=== PATIENT | male | born 1950 | race American Indian/Alaskan Native ===

== ENCOUNTER 2016-09-02 07:28 | Emergency (ER) | payer OTHER ==
[2016-09-02] MEDS ORDERED: Sodium Chloride 0.9% 2.5 ML Syringe FLUSH PRN (07:46)
[2016-09-02] MEDS ORDERED: Ketorolac 30 MG/ML SDV IVPUSH ONE (07:46)
[2016-09-02] MEDS ORDERED: Sodium Chloride 0.9% 10 ML Syringe FLUSH PRN (07:46)
--- NOTE | 2016-09-02 07:55 | EDM.PDOC ---
ED HPI Trauma - General Chief Complaint: Upper Extremity Injury/Pain Stated Complaint: POST OP SHOULDER SURGERY Time Seen by Provider: 09/02/16 07:35 - History of Present Illness INITIAL COMMENTS - FREE TEXT/NARRATIVE: HISTORY AND PHYSICAL: History of present illness: The patient is a 66-year-old male with a history of insulin requiring diabetes, HTN, who underwent rotator cuff/shoulder impingement surgery at [facility] in [place] with Dr. Burns 4 days ago who presents via EMS after waking this morning with severe excruciating pain to his right shoulder which then triggered him to have "visual changes involving seeing white and loss of hearing "that lasted for 15-20 minutes and has since resolved. The patient says that he had no chest pain shortness of breath or weakness in any of his extremities and he did not feel that he was going to pass out during this episode. His blood sugar per EMS was 88 on arrival and he currently has no symptoms in the ER except discomfort in his shoulder incision. He states to me he is very worried about an infection which is why he came here. He says he has a headache that he describes it as pain to the trapezius and posterior left neck area not specifically his head. Is had no fevers or chills in the last several days and no other upper respiratory symptoms. The patient currently denies any lightheadedness or dizziness has no weakness but does have some discomfort to his shoulder area on the left. The dressing is intact and is slated to be removed tomorrow and he will followup with his surgeon on Saturday. According to the swelling that is present at the shoulder is not new or different. He is currently taking hydrocodone for the pain. He denies any neurosensory changes in any of his extremities both a during the event and currently. Review of systems: As per history of present illness and below otherwise all systems reviewed and negative. Past medical history: As per history of present illness and as reviewed below otherwise noncontributory. Surgical history: As per history of present illness and as reviewed below otherwise noncontributory. Social history: No reported history of drug or alcohol abuse. Family history: As per history of present illness and as reviewed below otherwise noncontributory. Physical exam: General: Well-developed well-nourished male who is nontoxic and vital signs have been reviewed by me. He is clearly and easily in ED HEENT: Atraumatic, normocephalic, pupils reactive, negative for conjunctival pallor or scleral icterus, mucous membranes moist, throat clear, neck supple, nontender, trachea midline. There is reproducible pain along the left trapezius and posterior neck area but no scalp tenderness. Lungs: Clear to auscultation, breath sounds equal bilaterally, chest nontender. Heart: S1S2, regular, negative for clicks, rubs, or JVD. Abdomen: Soft, nondistended, nontender. Negative for masses or hepatosplenomegaly. Negative for costovertebral tenderness. Pelvis: Stable nontender. Genitourinary: Deferred. Rectal: Deferred. Extremities: Atraumatic, negative for cords or calf pain. Neurovascular unremarkable. The patient has a dressing in place at the left anterior shoulder is clean and dry and has visible old blood underneath it. There is some firm swelling appreciated consistent with an old hematoma but the compartment itself is very soft and distally there is no swelling or ecchymosis and neurovascular is intact completely in that arm grossly. Neuro: Awake, alert, oriented. Cranial nerves II through XII unremarkable. Cerebellum unremarkable. Motor and sensory unremarkable throughout. Exam nonfocal. Patient has no evidence of any drift any extremity and is speaking clearly and easily. Diagnostics: EKG CBC CMP lactic acid troponin TSH CT scan of the head visual acuity Therapeutics: IV O2 monitor Toradol Visual acuity was right eye 20/40 left eye 20/50 both eyes 20/30 with glasses. The patient seemed to be somewhat frustrated with the exam per the nurse. When I evaluated him initially he said that he did not have blurred vision nor was he seen the weight that he saw earlier in both eyes. The patient says that when the episode happened this morning his vision was blurred he just saw the white. Again he did not pass out or black out and denies to me that he felt like he was going to do that this morning. 0930: Testing results were discussed at length with the patient and family member at bedside. I discussed with them that I do not have a clear etiology as to what happened this morning and he can be any one of a number of things but that I recommended observation admission as it would be more prudent to follow these symptoms to see if they return and to do frequent neuro checks and potentially more testing if indicated. The patient feels very strongly that he does not want to stay but the and family member are currently talking to him and they want him to stay. The has asked me to contact his orthopedic surgeon at [facility] in [place] and although Dr. Burns is not yard supervisor [employer] his partner Dr. Russell has been paged and I will chat with him about today's events. The family is currently talking about the plan for either disposition home or admission. The family and patient are very aware of my concerns and the patient accepts all of the risks and benefits and states understanding. 0944: Case was discussed with Dr. Russell who says that he will pass on information to Dr. Burns. The patient has had discussions with the family and he is choosing to go home and accepts and understands risks. He is advised to return if the symptoms return or worsen or if anything new occurs and to proceed with this followup tomorrow and Saturday as scheduled. I also advised him to follow up with his family doctor for reevaluation as well. Impression: Episode of visual changes, hearing loss etiology unclear, history of recent shoulder surgery and narcotic use, history of hypertension and insulin requiring diabetes stable Definitive disposition and diagnosis as appropriate pending reevaluation and review of above. Allergies/ADRs: Allergies Olgyvoa-Cxi-Cir Reductase Inhibitor Allergy (Verified 09/02/16 07:38) Joint Pain venom-honey bee [bee venom (honey bee)] Allergy (Verified 03/16/16 20:09) Swelling Home Medications: Ambulatory Orders Insulin Detemir [Levemir Flexpen] 50 units SQ PCDIN 02/12/14 [Confirmed 09/02/16 ] metFORMIN [Glucophage XR] 2 tab PO DAILY 02/12/14 [Confirmed 09/02/16] Lansoprazole [Prevacid] 30 mg PO DAILY PRN 10/25/14 [Confirmed 09/02/16] Aspirin 81 mg PO DAILY 03/16/16 [Confirmed 09/02/16] Clopidogrel [Plavix] 75 mg PO DAILY 03/16/16 [Confirmed 09/02/16] Ezetimibe [Zetia] 10 mg PO DAILY 03/16/16 [Confirmed 09/02/16] Insulin Aspart [Novolog Flexpen] 5 units SQ TIDAC 03/16/16 [Confirmed 09/02/16] Lisinopril 1 tab PO DAILY 03/16/16 [Confirmed 09/02/16] Pioglitazone [Actos] 30 mg PO DAILY 03/16/16 [Confirmed 09/02/16] Cephalexin [Keflex] 500 mg PO QID 09/02/16 [Confirmed 09/02/16] Hydrocodone/Acetaminophen [Hydrocodon-Acetaminophn 10-325] 10 - 325 mg PO Q4HR PRN 09/02/16 [Confirmed 09/02/16] Ondansetron HCl [Zofran] 4 mg PO Q8HR PRN 09/02/16 [Confirmed 09/02/16] Tamsulosin [Flomax] 0.4 mg PO DAILY 09/02/16 [Confirmed 09/02/16] traMADol [Ultram] 50 mg PO Q6HR PRN 09/02/16 [Confirmed 09/02/16] Past Medical History Cardiovascular History: Reports: Bypass, CAD, High cholesterol, Hypertension, [place] Respiratory History: Reports: None Gastrointestinal History: Reports: None Neurological History: Reports: TIA Psychiatric History: Reports: None Endocrine/Metabolic History: Reports: Diabetes, type II Dermatologic History: Reports: None - Infectious Disease History Infectious Disease History: Reports: None - Past Surgical History HEENT Surgical History: Reports: Other (see below) Other HEENT Surgeries/Procedures: laser surgery Cardiovascular Surgical History: Reports: Carotid stents, Coronary artery bypass GI Surgical History: Reports: None Musculoskeletal Surgical History: Reports: Shoulder surgery, Other (see below) Other Musculoskeletal Surgeries/Procedures:: left arm surgery. removal of benign cyst on the neck area Social & Family History - Tobacco Use Smoking Status *Q: Never Smoker Used Tobacco, but Quit: Yes - Alcohol Use Days Per Week of Alcohol Use: 2 Number of Drinks Per Day: 2 Total Drinks Per Week: 4 - Recreational Drug Use Recreational Drug Use: No Drug Use in Last 12 Months: No Review of Systems - Review of Systems Review Of Systems: ROS reveals no pertinent complaints other than HPI. Trauma Exam - Physical Exam Exam: See Below (See dictation) Course - Vital Signs Last Recorded V/S: Last Vital Signs Temp 36.8 C 09/02/16 07:39 Pulse 105 H 09/02/16 07:39 Resp 19 09/02/16 07:39 BP 181/79 H 09/02/16 07:39 Pulse Ox 95 09/02/16 07:39 - Orders/Labs/Meds Orders: Active Orders 24 hr Category Date Time Status Cardiac Monitoring [RC] . DIRECTED Care 09/02/16 07:43 Active Communication Order [RC] STAT Care 09/02/16 08:47 Active EKG Documentation Completion [RC] STAT Care 09/02/16 07:43 Active Oxygen Therapy, ED [RC] ASDIRECTED Care 09/02/16 07:43 Active Pulse Oximetry [RC] ASDIRECTED Care 09/02/16 07:43 Active Head wo Cont [CT] Stat Exams 09/02/16 07:46 Taken Sodium Chloride 0.9% [Saline Flush] Med 09/02/16 07:46 Active 10 ml FLUSH ASDIRECTED PRN Sodium Chloride 0.9% [Saline Flush] Med 09/02/16 07:46 Active 2.5 ml FLUSH ASDIRECTED PRN Saline Lock Insert [OM.PC] Stat Oth 09/02/16 07:43 Ordered Medication Orders Sodium Chloride (Saline Flush) 10 ml FLUSH ASDIRECTED PRN PRN Reason: Keep Vein Open Last Admin: 09/02/16 08:05 Dose: 10 ml Sodium Chloride (Saline Flush) 2.5 ml FLUSH ASDIRECTED PRN PRN Reason: Keep Vein Open Last Admin: 09/02/16 08:05 Dose: 2.5 ml Labs: Laboratory Tests 09/02/16 09/02/16 09/02/16 Range/Units 08:05 08:05 08:05 WBC 9.96 (4.0-11.0) K/uL RBC 3.42 L (4.50-5.90) M/uL Hgb 9.8 L (13.0-17.0) g/dL Hct 29.9 L (38.0-50.0) % MCV 87.4 (80.0-98.0) fL MCH 28.7 (27.0-32.0) pg MCHC 32.8 (31.0-37.0) g/dL RDW Std Deviation 43.5 (28.0-62.0) fl RDW Coeff of Lele 14 (11.0-15.0) % Plt Count 258 (150-400) K/uL MPV 8.60 (7.40-12.00) fL Neut % (Auto) 84.2 H (48.0-80.0) % Lymph % (Auto) 8.9 L (16.0-40.0) % [place] % (Auto) 6.0 (0.0-15.0) % Eos % (Auto) 0.8 (0.0-7.0) % Baso % (Auto) 0.1 (0.0-1.5) % Neut # (Auto) 8.4 H (1.4-5.7) K/uL Lymph # (Auto) 0.9 (0.6-2.4) K/uL [place]id[place] # (Auto) 0.6 (0.0-0.8) K/uL Eos # (Auto) 0.1 (0.0-0.7) K/uL Baso # (Auto) 0.0 (0.0-0.1) K/uL Nucleated RBC % 0.0 /100WBC Nucleated RBCs # 0 K/uL Lactate 1.0 (0.20-2.00) mmol/L Sodium 137 (136-146) mmol/L Potassium 3.9 (3.5-5.1) mmol/L Chloride 103 (98-110) mmol/L Carbon Dioxide 24 (21-31) mmol/L BUN 13 (6.0-23.0) mg/dL Creatinine 0.8 (0.6-1.5) mg/dL Est Cr Clr Drug Dosing 86.69 mL/min Estimated GFR (MDRD) > 60.0 ml/min Glucose 102 (60-110) mg/dL Calcium 8.7 L (8.8-10.8) mg/dL Total Bilirubin 0.8 (0.1-1.5) mg/dL AST 17 (5-40) IU/L ALT 12 (8-54) IU/L Alkaline Phosphatase 58 (40-150) Troponin I (0.0-0.29) NG/ML Total Protein 7.2 (6.0-8.0) g/dL Albumin 3.5 (3.4-4.8) g/dL Globulin 3.7 H (2.0-3.5) g/dL Albumin/Globulin Ratio 1.0 L (1.3-2.8) TSH 3rd Generation 1.66 (0.47-5.0) uIU/mL 09/02/16 Range/Units 08:05 WBC (4.0-11.0) K/uL RBC (4.50-5.90) M/uL Hgb (13.0-17.0) g/dL Hct (38.0-50.0) % MCV (80.0-98.0) fL MCH (27.0-32.0) pg MCHC (31.0-37.0) g/dL RDW Std Deviation (28.0-62.0) fl RDW Coeff of Lele (11.0-15.0) % Plt Count (150-400) K/uL MPV (7.40-12.00) fL Neut % (Auto) (48.0-80.0) % Lymph % (Auto) (16.0-40.0) % [place]id[place] % (Auto) (0.0-15.0) % Eos % (Auto) (0.0-7.0) % Baso % (Auto) (0.0-1.5) % Neut # (Auto) (1.4-5.7) K/uL Lymph # (Auto) (0.6-2.4) K/uL [place] # (Auto) (0.0-0.8) K/uL Eos # (Auto) (0.0-0.7) K/uL Baso # (Auto) (0.0-0.1) K/uL Nucleated RBC % /100WBC Nucleated RBCs # K/uL Lactate (0.20-2.00) mmol/L Sodium (136-146) mmol/L Potassium (3.5-5.1) mmol/L Chloride (98-110) mmol/L Carbon Dioxide (21-31) mmol/L BUN (6.0-23.0) mg/dL Creatinine (0.6-1.5) mg/dL Est Cr Clr Drug Dosing mL/min Estimated GFR (MDRD) ml/min Glucose (60-110) mg/dL Calcium (8.8-10.8) mg/dL Total Bilirubin (0.1-1.5) mg/dL AST (5-40) IU/L ALT (8-54) IU/L Alkaline Phosphatase (40-150) Troponin I < 0.10 (0.0-0.29) NG/ML Total Protein (6.0-8.0) g/dL Albumin (3.4-4.8) g/dL Globulin (2.0-3.5) g/dL Albumin/Globulin Ratio (1.3-2.8) TSH 3rd Generation (0.47-5.0) uIU/mL Meds: Medications Generic Name Dose Route Start Last Admin Trade Name Freq PRN Reason Stop Dose Admin Sodium Chloride 10 ml 09/02/16 07:46 09/02/16 08:05 Saline Flush FLUSH 10 ml ASDIRECTED PRN Administration Keep Vein Open Sodium Chloride 2.5 ml 09/02/16 07:46 09/02/16 08:05 Saline Flush FLUSH 2.5 ml ASDIRECTED PRN Administration Keep Vein Open Discontinued Medications Generic Name Dose Route Start Last Admin Trade Name Freq PRN Reason Stop Dose Admin Ketorolac Tromethamine 30 mg 09/02/16 07:46 09/02/16 08:05 Toradol IVPUSH 09/02/16 07:47 30 mg ONETIME ONE Administration Departure - Departure Time of Disposition: 09:45 Disposition: Home, Self-Care 01 Condition: good Clinical Impression: Neurologic abnormality Forms: ED Department Discharge Additional Instructions: The following information is given to patients seen in the emergency department who are being discharged to home. This information is to outline your options for follow-up care. We provide all patients seen in our emergency department with a follow-up referral. The need for follow-up, as well as the timing and circumstances, are variable depending upon the specifics of your emergency department visit. If you don't have a primary care physician on staff, we will provide you with a referral. We always advise you to contact your personal physician following an emergency department visit to inform them of the circumstance of the visit and for follow-up with them and/or the need for any referrals to a consulting specialist. The emergency department will also refer you to a specialist when appropriate. This referral assures that you have the opportunity for followup care with a specialist. All of these measure are taken in an effort to provide you with optimal care, which includes your followup. Under all circumstances we always encourage you to contact your private physician who remains a resource for coordinating your care. When calling for followup care, please make the office aware that this follow-up is from your recent emergency room visit. If for any reason you are refused follow-up, please contact the [facility] emergency department at and ask to speak to the emergency department charge nurse. [facility] Primary care- Internal Medicine and Family [facility] [address] [place], [place] [id number] [facility] [address] [place] [address] Please keep all your appointments as scheduled for tomorrow and Saturday for your shoulder and please also call your primary care for further evaluation of today's events. Please also followup with the network support specialist to have your eyes reevaluated. Please take all home medications as before and return to ER as needed and as discussed - My Orders Last 24 Hours: My Active Orders 09/02/16 07:43 Cardiac Monitoring [RC] . DIRECTED EKG Documentation Completion [RC] STAT Oxygen Therapy, ED [RC] ASDIRECTED Pulse Oximetry [RC] ASDIRECTED Saline Lock Insert [OM.PC] Stat 09/02/16 07:46 Head wo Cont [CT] Stat Sodium Chloride 0.9% [Saline Flush] 10 ml FLUSH ASDIRECTED PRN Sodium Chloride 0.9% [Saline Flush] 2.5 ml FLUSH ASDIRECTED PRN 09/02/16 08:47 Communication Order [RC] STAT - Assessment/Plan Last 24 Hours: My Active Orders 09/02/16 07:43 Cardiac Monitoring [RC] . DIRECTED EKG Documentation Completion [RC] STAT Oxygen Therapy, ED [RC] ASDIRECTED Pulse Oximetry [RC] ASDIRECTED Saline Lock Insert [OM.PC] Stat 09/02/16 07:46 Head wo Cont [CT] Stat Sodium Chloride 0.9% [Saline Flush] 10 ml FLUSH ASDIRECTED PRN Sodium Chloride 0.9% [Saline Flush] 2.5 ml FLUSH ASDIRECTED PRN 09/02/16 08:47 Communication Order [RC] STAT
[2016-09-02 08:37] LABS: CHLORIDE,CL 103 mmol/L (98-110); SODIUM,NA 137 mmol/L (136-146)
[2016-09-02 10:01] VITALS: BP 142/62
--- NOTE | 2016-09-03 18:18 | CT ---
EXAM DATE: 09/02/16 PATIENT'S AGE: 66 Patient: CARLOS TONY Facility: [place], [place] Site . Site : 1950 Study: CT Head [id number]/26/2017 8:30:46 AM Ordering Physician: Gus Díaz Final Report: INDICATION: Blurred vision. Difficulty hearing. Recent shoulder surgery. TECHNIQUE: CT head without contrast. COMPARISON: April 27, 2009. FINDINGS: CSF spaces: Within normal limits for age. Brain parenchyma: The moore-white differentiation is normal. No sign of mass, hemorrhage, or midline shift. Skull base and calvarium: The visualized paranasal sinuses and mastoid air cells demonstrate no acute or significant findings. The visualized orbits are grossly unremarkable. No skull fractures. IMPRESSION: Unremarkable noncontrast head CT. No sign of CVA or other significant finding. Dictated by Royal Christianson MD @ 09/02/2016 9:26:16 AM Dictated by: Royal Christianson MD @ 09/02/2016 09:26:21 (Electronic Signature) Report Signed by Proxy and Original Signed Document filed in the Medical Record. [facility]
== END 2016-09-02 09:59 | disposition home or self-care (01) ==
LOC: MW.ED 07:28
DX: R29.818 Other symptoms and signs involving the nervous system (principal); M25.511 Pain in right shoulder; G89.18 Other acute postprocedural pain; E11.9 Type 2 diabetes mellitus without complications; Z79.4 Long term (current) use of insulin; I10 Essential (primary) hypertension; I25.810 Atherosclerosis of coronary artery bypass graft(s) without angina pectoris; I25.2 Old myocardial infarction; Z86.73 Personal history of transient ischemic attack (TIA), and cerebral infarction without residual deficits; Z87.891 Personal history of nicotine dependence; Z79.02 Long term (current) use of antithrombotics/antiplatelets; Z79.899 Other long term (current) drug therapy
CPT/HCPCS: 36415; 70450; 80053; 83605; 84443; 84484; 85025; 93005; 96374; 99284; J1885

== ENCOUNTER 2017-06-14 00:50 | Emergency (ER) | payer OTHER ==
[2017-06-14] MEDS ORDERED: Ondansetron 4 MG/2 ML SDV IVPUSH ONE (01:08)
[2017-06-14] MEDS ORDERED: Sodium Chloride 0.9% 1,000 ML IV ONE (01:08)
[2017-06-14] MEDS ORDERED: Ketorolac 30 MG/ML SDV IVPUSH ONE (01:08)
--- NOTE | 2017-06-14 01:10 | EDM.PDOC ---
ED HPI GENERAL MEDICAL PROBLEM - General Chief Complaint: Abdominal Pain Stated Complaint: UPPER RIGHT ABDOMINAL PAIN Time Seen by Provider: 06/14/17 01:10 Source of Information: Reports: Patient - History of Present Illness INITIAL COMMENTS - FREE TEXT/NARRATIVE: HISTORY AND PHYSICAL: History of present illness: [Patient presents with right upper quadrant pain 8 out of 10 tonight no fever nausea vomiting chills sweats He is been dealing with pain off and on over the last couple of months and intermittently in the remote past as well, tonight for dinner he had egg salad sandwiches and span which has seemed to trigger the pain No fever nausea vomiting chills sweats ] Review of systems: As per history of present illness and below otherwise all systems reviewed and negative. Past medical history: As per history of present illness and as reviewed below otherwise noncontributory. Surgical history: As per history of present illness and as reviewed below otherwise noncontributory. Social history: No reported history of drug or alcohol abuse. Family history: As per history of present illness and as reviewed below otherwise noncontributory. Physical exam: HEENT: Atraumatic, normocephalic, pupils reactive, negative for conjunctival pallor or scleral icterus, mucous membranes moist, throat clear, neck supple, nontender, trachea midline. Lungs: Clear to auscultation, breath sounds equal bilaterally, chest nontender. Heart: S1S2, regular, negative for clicks, rubs, or JVD. Abdomen: Soft, nondistended, nontender. Negative for masses or hepatosplenomegaly. Negative for costovertebral tenderness. Pelvis: Stable nontender. Genitourinary: Deferred. Rectal: Deferred. Extremities: Atraumatic, negative for cords or calf pain. Neurovascular unremarkable. Neuro: Awake, alert, oriented. Cranial nerves II through XII unremarkable. Cerebellum unremarkable. Motor and sensory unremarkable throughout. Exam nonfocal. Diagnostics: [CBC CMP amylase lipase troponin EKG Chest 1 view ] Therapeutics: []Liter normal saline bolus Zofran 8 mg IV Toradol 30 mg IV [place] diet Eighty Four Zofran Cipro Follow-up with general surgery for evaluation and treatment Impression: Biliary colic [Right upper quadrant pain resolved with above treatment Definitive disposition and diagnosis as appropriate pending reevaluation and review of above. RLQ Pain Score (Numeric/FACES): 6 - Related Data Allergies Allergy/AdvReac Type Severity Reaction Status Date / Time Nqcmbfx-Blo-Ljs Reductase Allergy Joint Pain Verified 09/02/16 07:38 Inhibitor venom-honey bee Allergy Swelling Verified 03/16/16 20:09 [bee venom (honey bee)] Home Meds: Home Meds Insulin Detemir [Levemir Flexpen] 50 units SQ PCDIN 02/12/14 [History] metFORMIN [Glucophage XR] 2 tab PO DAILY 02/12/14 [History] Lansoprazole [Prevacid] 30 mg PO DAILY PRN 10/25/14 [History] Aspirin 81 mg PO DAILY 03/16/16 [History] Clopidogrel [Plavix] 75 mg PO DAILY 03/16/16 [History] Insulin Aspart [Novolog Flexpen] 5 units SQ TIDAC 03/16/16 [History] Lisinopril 1 tab PO DAILY 03/16/16 [History] Tamsulosin [Flomax] 0.4 mg PO DAILY 09/02/16 [History] Past Medical History HEENT History: Reports: Impaired Vision Other HEENT History: wears glasses Cardiovascular History: Reports: Bypass, CAD, High Cholesterol, Hypertension, SD Respiratory History: Reports: None Gastrointestinal History: Reports: None Neurological History: Reports: TIA Psychiatric History: Reports: None Endocrine/Metabolic History: Reports: Diabetes, Type II Dermatologic History: Reports: None - Infectious Disease History Infectious Disease History: Reports: None - Past Surgical History HEENT Surgical History: Reports: Other (See Below) Cardiovascular Surgical History: Reports: Carotid Stents, Coronary Artery Bypass Musculoskeletal Surgical History: Reports: Shoulder Surgery, Other (See Below) Social & Family History - Family History Family Medical History: Noncontributory - Tobacco Use Smoking Status *Q: Never Smoker Used Tobacco, but Quit: Yes Second Hand Smoke Exposure: Yes - Caffeine Use Caffeine Use: Reports: None - Alcohol Use Days Per Week of Alcohol Use: 2 Number of Drinks Per Day: 2 Total Drinks Per Week: 4 - Recreational Drug Use Recreational Drug Use: No Drug Use in Last 12 Months: No ED ROS GENERAL - Review of Systems Review Of Systems: ROS reveals no pertinent complaints other than HPI. ED EXAM, GENERAL - Physical Exam Exam: See Below Course - Vital Signs Last Recorded V/S: Last Vital Signs Temp 98.9 F 06/14/17 01:10 Pulse 80 06/14/17 01:10 Resp 18 06/14/17 01:10 BP 185/91 H 06/14/17 01:10 Pulse Ox 95 06/14/17 01:10 - Orders/Labs/Meds Orders: Active Orders 24 hr Category Date Time Status EKG Documentation Completion [RC] STAT Care 06/14/17 01:08 Active Abdomen Ltd [US] Stat Exams 06/14/17 01:41 Taken Chest 1V Frontal [CR] Stat Exams 06/14/17 01:08 Taken UA W/MICROSCOPIC [URIN] Stat Lab 06/14/17 01:08 Uncollected Labs: Laboratory Tests 06/14/17 06/14/17 Range/Units 01:20 01:20 WBC 8.04 (4.0-11.0) K/uL RBC 4.25 L (4.50-5.90) M/uL Hgb 13.0 (13.0-17.0) g/dL Hct 37.6 L (38.0-50.0) % MCV 88.5 (80.0-98.0) fL MCH 30.6 (27.0-32.0) pg MCHC 34.6 (31.0-37.0) g/dL RDW Std Deviation 40.2 (28.0-62.0) fl RDW Coeff of Lele 13 (11.0-15.0) % Plt Count 306 (150-400) K/uL MPV 8.60 (7.40-12.00) fL Neut % (Auto) 49.9 (48.0-80.0) % Lymph % (Auto) 34.8 (16.0-40.0) % [place] % (Auto) 7.6 (0.0-15.0) % Eos % (Auto) 7.3 H (0.0-7.0) % Baso % (Auto) 0.4 (0.0-1.5) % Neut # (Auto) 4.0 (1.4-5.7) K/uL Lymph # (Auto) 2.8 H (0.6-2.4) K/uL Charlotte # (Auto) 0.6 (0.0-0.8) K/uL Eos # (Auto) 0.6 (0.0-0.7) K/uL Baso # (Auto) 0.0 (0.0-0.1) K/uL Sodium 137 (136-146) mmol/L Potassium 3.9 (3.5-5.1) mmol/L Chloride 105 (98-110) mmol/L Carbon Dioxide 23 (21-31) mmol/L BUN 16 (6.0-23.0) mg/dL Creatinine 1.0 (0.6-1.5) mg/dL Est Cr Clr Drug Dosing 68.40 mL/min Estimated GFR (MDRD) > 60.0 ml/min Glucose 120 H (60-110) mg/dL Calcium 9.2 (8.8-10.8) mg/dL Total Bilirubin 0.5 (0.1-1.5) mg/dL AST 18 (5-40) IU/L ALT 17 (8-54) IU/L Alkaline Phosphatase 92 (40-150) Creatine Kinase 104 (9-236) IU/L CK-MB (CK-2) 1.4 (0-6.6) ng/ml Troponin I < 0.10 (0.0-0.29) NG/ML Total Protein 8.1 H (6.0-8.0) g/dL Albumin 4.2 (3.4-4.8) g/dL Globulin 3.9 H (2.0-3.5) g/dL Albumin/Globulin Ratio 1.1 L (1.3-2.8) Amylase 54 (10-90) U/L Lipase 36 (7-80) U/L Meds: Medications Discontinued Medications Generic Name Dose Route Start Last Admin Trade Name Freq PRN Reason Stop Dose Admin Sodium Chloride 1,000 mls @ 999 mls/hr 06/14/17 01:08 06/14/17 01:28 Normal Saline IV 06/14/17 02:08 999 mls/hr STAT ONE Administration Ketorolac Tromethamine 30 mg 06/14/17 01:08 06/14/17 01:28 Toradol IVPUSH 06/14/17 01:09 30 mg ONETIME ONE Administration Ondansetron HCl 8 mg 06/14/17 01:08 06/14/17 01:28 Zofran IVPUSH 06/14/17 01:09 8 mg ONETIME ONE Administration Departure - Departure Time of Disposition: 03:01 Disposition: Home, Self-Care 01 Condition: Good Clinical Impression: Biliary colic - Discharge Information Referrals: Leela Amaro PA-C [Primary Care Provider] - Forms: ED Department Discharge Additional Instructions: Medication as prescribed [place] diet as discussed avoiding greasy or deep-fried foods Return if symptoms persist or worsen or fever chills sweats should they develop General surgery call number provided below to set up appropriate follow-up next week [facility] - General Surgery [address], [address] [place] [address] The following information is given to patients seen in the emergency department who are being discharged to home. This information is to outline your options for follow-up care. We provide all patients seen in our emergency department with a follow-up referral. The need for follow-up, as well as the timing and circumstances, are variable depending upon the specifics of your emergency department visit. If you don't have a primary care physician on staff, we will provide you with a referral. We always advise you to contact your personal physician following an emergency department visit to inform them of the circumstance of the visit and for follow-up with them and/or the need for any referrals to a consulting specialist. The emergency department will also refer you to a specialist when appropriate. This referral assures that you have the opportunity for follow-up care with a specialist. All of these measure are taken in an effort to provide you with optimal care, which includes your follow-up. Under all circumstances we always encourage you to contact your private physician who remains a resource for coordinating your care. When calling for follow-up care, please make the office aware that this follow-up is from your recent emergency room visit. If for any reason you are refused follow-up, please contact the [facility] emergency department at and asked to speak to the emergency department charge nurse. - My Orders Last 24 Hours: My Active Orders 06/14/17 01:08 EKG Documentation Completion [RC] STAT Chest 1V Frontal [CR] Stat UA W/MICROSCOPIC [URIN] Stat 06/14/17 01:41 Abdomen Ltd [US] Stat - Assessment/Plan Last 24 Hours: My Active Orders 06/14/17 01:08 EKG Documentation Completion [RC] STAT Chest 1V Frontal [CR] Stat UA W/MICROSCOPIC [URIN] Stat 06/14/17 01:41 Abdomen Ltd [US] Stat
[2017-06-14 02:04] LABS: CHLORIDE,CL 105 mmol/L (98-110); SODIUM,NA 137 mmol/L (136-146)
[2017-06-14 03:20] VITALS: BP 145/74
--- NOTE | 2017-06-14 16:27 | CR ---
EXAM DATE: 06/14/17 PATIENT'S AGE: 67 Patient: CARLOS TONY Facility: [place], [place] Site . Site : 1950 Study: XRay Chest [id number]/5/2018 1:52:11 AM Ordering Physician: Tristan Poe Final Report: INDICATIONS: Pain. Shortness of breath. TECHNIQUE: Chest 1 portable view. COMPARISON: Chest radiograph March 16, 2016. FINDINGS: No pneumothorax or pleural effusion. Elevation of the right hemidiaphragm with mild bibasilar scarring or atelectasis, as before. The lungs are otherwise clear. Median sternotomy. Cardiac and mediastinal contours are within normal limits. Upper abdomen and osseous structures show no acute abnormality. Surgical anchors in the right humeral head. Left shoulder arthroplasty. IMPRESSION: No evidence of acute cardiopulmonary disease. Dictated by Thierry Hinds MD @ 06/14/2017 1:55:10 AM Dictated by: Thierry Hinds MD @ 06/14/2017 01:55:19 (Electronic Signature) Report Signed by Proxy. [facility]AMPUSKevin
--- NOTE | 2017-06-14 16:29 | US ---
EXAM DATE: 06/14/17 PATIENT'S AGE: 67 Patient: CARLOS TONY Facility: [place], [place] Site . Site : 1950 Study: US Abdomen [id number]/5/2018 2:35:42 AM Ordering Physician: Tristan Poe Final Report: INDICATION: Pain. TECHNIQUE: Ultrasound abdomen limited. Sonographic images of the right upper quadrant were obtained using moore-scale and color Doppler images. COMPARISON: Abdominal ultrasound November 12, 2014. FINDINGS: Exam quality degraded by overlying bowel gas. Liver: Diffusely elevated echotexture of the visualized hepatic parenchyma. No focal liver lesion demonstrated. Gallbladder: Possible small amount of sludge in the gallbladder. No shadowing stones, gallbladder wall thickening or pericholecystic fluid. Common bile duct: 5 mm. Pancreas: Unremarkable as imaged. Right kidney: 13 cm in length. Normal echotexture and cortex. No masses, stones , or hydronephrosis. No free fluid demonstrated. Focused imaging of the right lower quadrant shows no ultrasonographic abnormality. IMPRESSION: Fatty change of the liver. Possible small amount of gallbladder sludge. Dictated by Thierry Hinds MD @ 06/14/2017 2:40:17 AM Dictated by: Thierry Hinds MD @ 06/14/2017 02:40:41 (Electronic Signature) Report Signed by Proxy. [facility]IT[facility]evin
== END 2017-06-14 03:17 | disposition home or self-care (01) ==
LOC: MW.ED 00:50
DX: K80.50 Calculus of bile duct without cholangitis or cholecystitis without obstruction (principal); I10 Essential (primary) hypertension; I25.10 Atherosclerotic heart disease of native coronary artery without angina pectoris; E78.00 Pure hypercholesterolemia, unspecified; E11.9 Type 2 diabetes mellitus without complications; Z95.5 Presence of coronary angioplasty implant and graft; Z95.1 Presence of aortocoronary bypass graft; Z87.891 Personal history of nicotine dependence; Z79.4 Long term (current) use of insulin; Z79.82 Long term (current) use of aspirin; Z79.02 Long term (current) use of antithrombotics/antiplatelets; Z79.899 Other long term (current) drug therapy; Z88.8 Allergy status to other drugs, medicaments and biological substances; Z91.030 Bee allergy status
CPT/HCPCS: 36415; 71045; 76705; 80053; 82150; 82550; 82553; 83690; 84484; 85025; 93005; 96361; 96374; 96375; 99284; J1885; J2405; J7040

== ENCOUNTER 2017-06-27 07:05 | Day surgery (SDC) | payer OTHER ==
[~2017-06-27 07:05] MED LIST: Lactated Ringers 1,000 ML IV SCH; Sodium Chloride 0.9% 10 ML Syringe FLUSH PRN; Sodium Chloride 0.9% 2.5 ML Syringe FLUSH PRN
[2017-06-27] MEDS ORDERED: Propofol 200 MG/20 ML SDV ONE (07:32)
[2017-06-27] MEDS ORDERED: Midazolam 1 MG/ML 2 ML SDV ONE (07:32)
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
--- NOTE | 2017-06-27 08:56 | PCM.OPNOTE ---
- General Post-Op/Procedure Note Date of Surgery/Procedure: 06/27/17 Operative Procedure(s): EGD with biopsy Findings: Normal EGD Pre Op Diagnosis: RUQ pain Post-Op Diagnosis: Normal EGD Anesthesia Technique: FRANCHESCA Primary Surgeon: Tarsha Osorio Condition: Good
[2017-06-27 09:31] VITALS: BP 148/73
--- NOTE | 2017-06-27 10:33 | OR ---
SURGEON: PEDRO SILVER MD DATE OF PROCEDURE: 06/27/2017 PREOPERATIVE DIAGNOSIS: Right upper quadrant pain. POSTOPERATIVE DIAGNOSIS: Right upper quadrant pain. PROCEDURE PERFORMED: Diagnostic esophagogastroduodenoscopy. ANESTHESIA: MAC. INSTRUMENT USED: Olympus endoscope. EXTENT OF EXAM: To the second portion of the duodenum. PREPARATION: Good. LIMITATIONS: None. INDICATIONS FOR EXAMINATION: The patient is a 67-year-old male who presents with severe right upper quadrant pain. Ultrasound shows gallbladder sludge. The patient has a known history of GERD. A decision was made to perform a diagnostic EGD prior to taking up the gallbladder to rule out any peptic ulcer disease as the cause of the patient's pain. We discussed the procedure, expected perioperative course, and risks including bleeding or perforation. The patient verbalized understanding and wishes to proceed. PROCEDURE IN DETAIL: The patient was brought into the endoscopy suite and placed in a beach chair position. A time-out was completed verifying the patient's name, age, date of , allergies, and procedure to be performed. A bite block was placed in the patient's mouth and monitored anesthesia care induced. Continuous oxygen was provided via nasal cannula throughout the procedure. After adequate sedation was achieved, a well lubricated endoscope was placed in the patient's mouth and advanced under direct visualization to the level of the second portion of the duodenum. This appeared normal and a photograph was taken. The scope was then fully withdrawn while examining the color, texture, anatomy, and integrity mucosa of the upper GI tract. There was no evidence of ulceration or inflammation in the duodenum. The scope was brought into the stomach and a photograph taken of the pylorus and GE junction. Both of which appeared normal. The gastric mucosa appeared slightly red, but there were no gross signs of gastritis or ulceration. The scope was then brought into the distal esophagus and a photograph was taken of the Z-line. This appeared normal. The remainder of the esophageal mucosa was free of pathology. The scope was then removed from the patient and the procedure was terminated. The patient tolerated the procedure well and was taken to PACU in stable condition. ENDOSCOPIC DIAGNOSIS: Normal esophagogastroduodenoscopy. RECOMMENDATIONS: We will proceed with laparoscopic cholecystectomy next week and see patient after this procedure is performed. CARLOS EDUARDO / CORINNE /[id number]
[2017-07-02] MEDS ORDERED: Sodium Chloride 0.9% 2.5 ML Syringe FLUSH PRN (15:35)
[2017-07-02] MEDS ORDERED: ceFAZolin 2 GM in Premix Bag 1 BAG IV ONE (15:35)
[2017-07-02] MEDS ORDERED: Sodium Chloride 0.9% 10 ML Syringe FLUSH PRN (15:35)
[2017-07-02] MEDS ORDERED: Lactated Ringers 1,000 ML IV SCH (15:45)
--- NOTE | 2017-07-04 11:51 | OR ---
SURGEON: PEDRO SILVER MD DATE OF PROCEDURE: 06/27/2017 ADDENDUM: The patient underwent a diagnostic EGD. When the endoscope was in the stomach, biopsies were taken of the gastric antrum, body, and fundus and sent for histologic and H. pylori testing. CARLOS EDUARDO SUN /[id number]
== END 2017-06-27 09:30 | disposition home or self-care (01) ==
LOC: MW.SDS 07:05
PROVIDERS: ATTEND Surgery
DX: K29.50 Unspecified chronic gastritis without bleeding (principal); I25.10 Atherosclerotic heart disease of native coronary artery without angina pectoris; E11.9 Type 2 diabetes mellitus without complications; K21.9 Gastro-esophageal reflux disease without esophagitis; I10 Essential (primary) hypertension; E78.00 Pure hypercholesterolemia, unspecified; Z88.8 Allergy status to other drugs, medicaments and biological substances; Z91.030 Bee allergy status; Z79.82 Long term (current) use of aspirin; Z79.84 Long term (current) use of oral hypoglycemic drugs; Z79.899 Other long term (current) drug therapy; Z95.1 Presence of aortocoronary bypass graft; Z87.891 Personal history of nicotine dependence
CPT/HCPCS: 43239; 82962; J2250; J7120; 00731; 88305; 88312; J2704

== ENCOUNTER 2017-07-04 08:10 | Day surgery (SDC) | payer OTHER ==
[~2017-07-04 08:10] MED LIST changes: +Bupivacaine 0.5% 30 ML SDV ONE; +ceFAZolin 2 GM in Premix Bag 1 BAG IV ONE
[2017-07-04] MEDS ORDERED: Lidocaine 2% 5 ML SDV ONE (08:39)
[2017-07-04] MEDS ORDERED: fentaNYL 100 MCG/2 ML SDV ONE (08:39)
[2017-07-04] MEDS ORDERED: Propofol 200 MG/20 ML SDV ONE ×2 (08:39→11:24)
[2017-07-04] MEDS ORDERED: Midazolam 1 MG/ML 2 ML SDV ONE (08:39)
[2017-07-04] MEDS ORDERED: Ondansetron 4 MG/2 ML SDV ONE ×2 (08:40→11:21)
[2017-07-04] MEDS ORDERED: Dexamethasone 4 MG/ML 5 ML MDV ONE (08:40)
[2017-07-04] MEDS ORDERED: Rocuronium 10 MG/ML 10 ML Syringe ONE (08:40)
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
[2017-07-04] MEDS ORDERED: Aspirin 81 MG Tab.Chew PO ONE (08:43)
[2017-07-04] MEDS ORDERED: Aspirin 81 MG Tab.Chew ONE (08:49)
[2017-07-04] MEDS ORDERED: HYDROmorphone 2 MG/ML SDV ONE (08:53)
[2017-07-04] MEDS ORDERED: Acetaminophen/oxyCODONE 325-5 MG Tab PO PRN (10:01)
[2017-07-04] MEDS ORDERED: Sugammadex Sodium 200 MG/2 ML VIAL ONE (10:46)
[2017-07-04] MEDS ORDERED: fentaNYL 100 MCG/2 ML SDV IVPUSH PRN (10:52)
[2017-07-04] MEDS ORDERED: HYDROmorphone 2 MG/ML Syringe IVPUSH ONE (10:52)
[2017-07-04] MEDS ORDERED: ePHEDrine 50 MG/ML SDV ONE (11:05)
[2017-07-04] MEDS ORDERED: Phenylephrine/Normal Saline 100 MCG/ML 10 ML Syringe ONE (11:05)
[2017-07-04] MEDS ORDERED: Scopolamine 1.5 MG Transdermal Patch TRDERM PRN (11:41)
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
--- NOTE | 2017-07-04 11:56 | PCM.OPNOTE ---
- General Post-Op/Procedure Note Date of Surgery/Procedure: 07/04/17 Operative Procedure(s): Laparoscopic cholecystectomy Findings: Moderately inflammed and distended gallbladder. Small tear (1 cm) made in the right lobe of the liver just lateral to the GB fossa. Pre Op Diagnosis: Symptomatic cholelithiasis Post-Op Diagnosis: same Anesthesia Technique: MAC Primary Surgeon: Tarsha Osorio Condition: Good Free Text/Narrative:: Intake & Output 07/03/17 07/04/17 07/04/17 22:59 06:59 14:59 Output Total 375 Balance -375
--- NOTE | 2017-07-04 14:04 | PCM.POSTAN ---
POST ANESTHESIA ASSESSMENT - MENTAL STATUS Mental Status: Alert, Oriented - RESPIRATORY Respiratory Status: Respiratory Rate WNL, Airway Patent, O2 Saturation Stable - CARDIOVASCULAR CV Status: Pulse Rate WNL, Blood Pressure Stable - GASTROINTESTINAL GI Status: No Symptoms - POST OP HYDRATION Hydration Status: Adequate & Stable
[2017-07-04 15:48] VITALS: BP 160/76
--- NOTE | 2017-07-04 16:09 | PCM48HPAN ---
Post Anesthesia Note - EVALUATION WITHIN 48HRS OF ANESTHETIC Vital Signs in Normal Range: Yes Patient Participated in Evaluation: Yes Respiratory Function Stable: Yes Airway Patent: Yes Cardiovascular Function Stable: Yes Hydration Status Stable: Yes Pain Control Satisfactory: Yes Nausea and Vomiting Control Satisfactory: Yes Mental Status Recovered: Yes
--- NOTE | 2017-07-04 23:03 | OR ---
SURGEON: PEDRO SILVER MD DATE OF PROCEDURE: 07/04/2017 PREOPERATIVE DIAGNOSIS: Symptomatic cholelithiasis. POSTOPERATIVE DIAGNOSIS: Symptomatic cholelithiasis. PROCEDURE PERFORMED: Laparoscopic cholecystectomy. ANESTHESIA: General endotracheal anesthesia. FLUIDS: 1800 mL of crystalloid. URINE OUTPUT: 375 mL. ESTIMATED BLOOD LOSS: 50 mL. FINDINGS: Moderately inflamed and distended gallbladder. COMPLICATIONS: None. INDICATIONS: The patient is a 67-year-old male with right upper quadrant pain, made worse with meals. He was found to have gallbladder sludge and small stones in gallbladder. A diagnostic EGD was performed the week before that was normal. The decision was made to remove the gallbladder. I had explained the laparoscopic and open approaches. The patient understands that should I be unable to perform it safely laparoscopically, I will convert to open. The patient and I discussed the procedure, expected perioperative course, and risks including bleeding, infection, or damage to the surrounding structures. The patient verbalized understanding and wishes to proceed. PROCEDURE IN DETAIL: The patient was brought into the operating room and placed on the OR table in supine position. A time-out was completed verifying the patient's name, age, date of , allergies, and procedure to be performed. General endotracheal anesthesia was induced. The patient's left arm was tucked to the side and a Hendrix catheter was placed. The abdomen was prepped and draped in usual standard fashion. I anesthetized the infraumbilical fold with 0.5% Marcaine plain. A #15 blade was used to make a curvilinear incision along this fold. Cautery was used to dissect down to the level of the subcutaneous fat. Army[employer] retractors were used to dissect bluntly down to the level of the fascia. The fascia was elevated with Humphrey's and incised sharply with a curved Morales scissors. The peritoneum was identified and a Metzenbaum scissors were used to cut through this. A 12 mm Arnoldo trocar was placed in the abdomen and the abdomen was insufflated to 13 mmHg. The patient was placed into reverse Trendelenburg position and airplaned slightly to the left, 5 mm trocars were placed under direct visualization in the following locations; 1 in the epigastric area, 1 in the right flank, and 1 in the 2 fingerbreadths below the right subcostal margin along the midclavicular line. The dome of the gallbladder was identified and elevated using an atraumatic grasper through the right lateral port. With gentle elevation, however, a tear was made along the liver parenchyma just lateral to the gallbladder. In order to relieve any tension along this area, I dissected the lateral edge of the gallbladder in a dome down fashion. The tear along the liver parenchyma was tamponaded with Surgicel which controlled the bleeding. I then gently retracted the infundibulum to the right and inferior and continued my dissection medially. I identified my cystic duct and artery and cleared off the proximal one-third of the cystic plate. After achieving my critical view, the cystic duct and artery were doubly clipped and ligated. The gallbladder was then removed from the gallbladder fossa using electrocautery. The gallbladder was noted to be moderately distended and inflamed. Once the gallbladder was removed from the gallbladder fossa, it was placed in an EndoCatch bag and removed through the infraumbilical port site. The 12 mm Arnoldo trocar was then placed back in the abdomen and I inspected my operative field. The patient was somewhat oozy, so Surgicel and Avitene were placed within the gallbladder fossa. This achieved adequate hemostasis. The abdomen was lightly irrigated until the fluid ran clear. The 5 mm trocars were removed under direct visualization and the 12 mm trocar removed. The abdomen was allowed to desufflate. The fascia at the 12 mm port site was closed with interrupted 0 Vicryl sutures. The site was then closed with interrupted 3-0 Vicryl in the subcutaneous fat and a running 4-0 Monocryl suture in the subcuticular space. The 5 mm trocar sites were closed with interrupted 4-0 Monocryl. Steri-Strips and sterile dressings were applied. The patient tolerated the procedure well and was taken to the PACU in stable condition. CARLOS EDUARDO SUN /[id number]
== END 2017-07-04 16:05 | disposition home or self-care (01) ==
LOC: MW.SDS 08:10
PROVIDERS: ATTEND Surgery
DX: K80.10 Calculus of gallbladder with chronic cholecystitis without obstruction (principal); I25.10 Atherosclerotic heart disease of native coronary artery without angina pectoris; E11.9 Type 2 diabetes mellitus without complications; K21.9 Gastro-esophageal reflux disease without esophagitis; K64.4 Residual hemorrhoidal skin tags; I10 Essential (primary) hypertension; K57.90 Diverticulosis of intestine, part unspecified, without perforation or abscess without bleeding; E78.00 Pure hypercholesterolemia, unspecified; Z88.8 Allergy status to other drugs, medicaments and biological substances; Z91.030 Bee allergy status; Z79.82 Long term (current) use of aspirin; Z79.899 Other long term (current) drug therapy; Z95.1 Presence of aortocoronary bypass graft; Z98.52 Vasectomy status; Z87.891 Personal history of nicotine dependence; Z79.4 Long term (current) use of insulin; Z96.612 Presence of left artificial shoulder joint
CPT/HCPCS: 47562; 82962; A9270; C9399; J0690; J1100; J1170; J2250; J2405; J3010; J7120; 00790; 88304; J2704